=== PATIENT | female | born 2000 | race Caucasian/White ===

== ENCOUNTER 2022-02-04 01:59 | Emergency (ER) | payer OTHER ==
[~2022-02-04] VITALS: Ht 160 cm; Wt 73.5 kg
--- NOTE | 2022-02-04 02:08 | ER.PDOC ---
General Chief Complaint: Requesting Medical Care Stated Complaint: R SIDE BACK PAIN TRAVEL OUT OF US: No Time seen by MD: 02:20 Source: patient Exam Limitations: no limitations History of Present Illness Initial Comments 21-year-old G1, P0 24 wks comes in with complaint of back pain that started yesterday morning when she got up. She stated this was just a mild nagging discomfort throughout the day that slowly got worse and then this evening severe enough that she decided to come into the emergency department to get checked out. She is back here visiting family. She is back here from [place]. Her is stationed there in the [place]. 20-week ultrasound showed baby to be fine and shows it to be a little girl. She has not had any complications with this so far. Patient states that there is no known trauma of any type. She also denies being sick in any way shape or form. She does not have any nausea vomiting diarrhea no urinary tract symptoms no fevers no chills no signs or symptoms of being sick in any way. PatientAlso states that there is no specific position that makes this worse or better. Patient tried heating pad and found that it also had no effect on making this better or worse.Has taken Tylenol for this pain nothing else. Timing/Duration: other (Approximately 20 hours or so now) Severity: moderate (Pain started out mild and has gotten progressively worse to.) Modifying Factors: improves with other (Position medication and heat has not changed this) Associated Symptoms: denies symptoms Past Medical History Medical History: no pertinent history Surgical History: tonsillectomy Family History Significant Family History: no pertinent family hx Social History Smoking: non-smoker Alcohol Use: none Drug Use: none Review of Systems Constitutional: denies no symptoms reported, denies see HPI, denies chills, denies diaphoresis, denies fever, denies malaise, denies weakness, denies other EENTM: denies no symptoms reported, denies see HPI, denies eye pain, denies blurred vision, denies tearing, denies double vision, denies ear pain, denies ear discharge, denies nose pain, denies nose congestion, denies throat pain, denies throat swelling, denies mouth pain, denies mouth swelling, denies other Respiratory: denies no symptoms reported, denies see HPI, denies cough, denies orthopnea, denies shortness of breath, denies stridor, denies wheezing, denies other Cardiovascular: denies no symptoms reported, denies see HPI, denies chest pain, denies edema, denies palpitations, denies syncope, denies other Gastrointestinal: denies no symptoms reported, denies see HPI, denies abdominal pain, denies constipation, denies diarrhea, denies nausea, denies vomiting, denies other Genitourinary: denies no symptoms reported, denies see HPI, denies discharge, denies dysuria, denies frequency, denies hematuria, denies pain Musculoskeletal: denies no symptoms reported, denies see HPI; back pain; denies gout, denies joint pain, denies joint swelling, denies muscle pain, denies muscle stiffness, denies neck pain, denies other Skin: denies no symptoms reported, denies see HPI, denies change in color, denies change in hair/nails, denies dryness, denies lesions, denies lumps, denies rash, denies other Psychiatric/Neurological: denies no symptoms reported, denies see HPI, denies anxiety, denies depressed, denies emotional problems, denies headache, denies numbness, denies paresthesia, denies pre-existing deficit, denies seizure, denies tingling, denies tremors, denies weakness, denies other Hematologic/Lymphatic: denies no symptoms reported, denies see HPI, denies anemia, denies blood clots, denies easy bleeding, denies easy bruising, denies swollen glands, denies other Immunological/Allergic: denies no symptoms reported, denies see HPI, denies food allergy, denies grass allergy, denies mold allergy, denies pollen allergy, denies HIV/AIDS, denies transplant All Other Systems: Reviewed and Negative Physical Exam General Appearance: No Apparent Distress, WD/WN EENT: eyes nml inspection Neck: Non-Tender, Full Range of Motion, Supple Respiratory: chest non-tender, lungs clear, normal breath sounds, no respiratory distress, no accessory muscle use CVS: reg rate & rhythm, no murmur, no gallop Gastrointestinal: Normal Bowel Sounds, Non Tender, Other (Uterine size consistent with dates of 24 weeks. heart tones 138) Back: Normal Inspection, No CVA Tenderness, No Vertebral Tenderness Extremities: Normal Range of Motion, Non-Tender, Normal Inspection, No Pedal Edema Neurologic/Psychiatric: [employer] II-XII NML as Tested, No Motor/Sensory Deficits, Alert, Normal Mood/Affect, Oriented x 3 Skin: Normal Color, Warm/Dry Lymphatic: No Adenopathy ER DEPART Departure Time of Disposition: 02:36 Disposition: 01 HOME / SELF CARE / HOMELESS Impression: Primary Impression: Discomfort during Additional Impression: Broad ligament pain Condition: Stable Referrals: ALFREDO ROONEY MD (PCP) PRIMARY CARE PROVIDER Comments Patient was advised that since she is in this middle trimester will at 24 weeks that she certainly can take a short course of Motrin. Based on her prepregnancy weight, she can have 600 mg 3 times a day. Patient is advised that absolutely cannot have any anti-inflammatories or anything that would have an antiplatelet effect after 30 weeks of . Duration or Time Spent with Pa: 15m Problem Qualifiers RAJNI OMALLEY MD Feb 04, 2022 02:08
[2022-02-04 02:23] VITALS: BP 142/96
--- NOTE | 2022-02-04 02:36 | NUR ---
[facility] 138
[2022-02-04 03:04] VITALS: BP 134/70
== END 2022-02-04 02:45 | disposition home or self-care (01) ==
LOC: ER 01:59
DX: O26.892 Other specified pregnancy related conditions, second trimester (principal); Z3A.24 24 weeks gestation of pregnancy; R10.2 Pelvic and perineal pain
CPT/HCPCS: 99282